=== PATIENT | male | born 1940 | race Caucasian/White ===

== ENCOUNTER 2023-08-16 12:12 | Emergency (ER) | payer OTHER ==
[2023-08-16] MEDS ORDERED: Morphine 4 MG/ML VIAL ONE (12:33)
[2023-08-16] MEDS ORDERED: Ketorolac Tromethamine 30 MG (1 mL) VIAL ONE (12:33)
[2023-08-16 13:15] LABS: ALT (SGPT) 15 U/L (8-55); AST (SGOT) 20 U/L (5-34); Alkaline Phosphatase 62 U/L (40-110); Anion Gap 14 mmol/L (10-20); BUN (Urea Nitrogen) 28 mg/dL (8.4-25.7); Bilirubin, Total 0.9 mg/dL (0.2-1.2); Calc. Creatinine Clearance 0 mL/min (70-130); Calcium 9.3 mg/dL (7.8-10.44); Carbon Dioxide 19 mmol/L (23-31); Chloride 108 mmol/L (98-107); Estimated GFR 57; Glucose 89 mg/dL (83-110); Potassium 4.4 mmol/L (3.5-5.1); Sodium 137 mmol/L (136-145)
[2023-08-16 13:22] LABS: #Basophils 0.1 10x3/uL (0.0-0.2); #Eosinphils 0.5 10x3/uL (0.0-0.5); #Monocytes 0.9 10x3/uL (0.0-1.1); #Neutrophils 5.2 10x3/uL (1.5-8.4); %Eosinophils 6.5 % (0.0-6.0); %Lymphocytes 14.9 % (18.0-47.0); %Monocytes 11.2 % (0.0-10.0); Hematocrit 41.2 % (38.8-50.0); Hemoglobin 13.5 g/dL (13.5-17.5); Mean Corpuscular HGB CONC 32.8 g/dL (32.0-36.0); Mean Corpuscular Hemoglobin 29.9 pg (27.0-33.0); Mean Corpuscular Volume 91.2 fl (81.2-95.1); Mean Platelet Volume 11.9 fl (7.4-10.4); Platelet Count 131 10x3/uL (150-450); RBC Distribution Width 13.4 % (11.5-14.5); Red Blood Cell (RBC) Count 4.52 10x6/uL (4.32-5.72); White Blood Cell (WBC) Count 7.9 10x3/uL (3.5-10.5)
== END 2023-08-16 14:38 ==
LOC: CSHERS 12:12 → EEVIPCON 12:12 → CSHERS 14:38
DX: S06.0XAA Concussion with loss of consciousness status unknown, initial encounter (principal); S40.022A Contusion of left upper arm, initial encounter; I12.9 Hypertensive chronic kidney disease with stage 1 through stage 4 chronic kidney disease, or unspecified chronic kidney disease; N18.9 Chronic kidney disease, unspecified; W19.XXXA Unspecified fall, initial encounter
CPT/HCPCS: 36415; 70450; 71045; 72125; 72131; 72192; 80053; 85025; 96374; 96375; J1885; J2270